=== PATIENT | female | born 2000 | race Caucasian/White ===

== ENCOUNTER 2023-09-11 13:25 | Emergency (ER) | payer OTHER, SELFPAY ==
[2023-09-11 13:30] VITALS: BP 136/83
[2023-09-11 13:44] VITALS: BMI 22.5
--- NOTE | 2023-09-11 14:04 | ED.GENMED ---
History of Present Illness
General
Chief Complaint: Breathing Problem
Source: patient
Exam Limitations: none
Time Seen by Provider: 09/11/23 13:45
Nursing documentation reviewed up to this point in time: agreed with
Travel History
Have you had any contact with someone who has COVID-19?: No
Do you have any symptoms of coronavirus? Fever > 100 degrees, chills, cough, shortness of breath, sore throat, loss of taste or smell, muscle aches, or headache?: Yes
Symptoms:: see triage note
History of Present Illness
History of Present Illness:
23-year-old female presents to the ER for evaluation. Patient is a college student and on Wednesday started with cough. Today however she had a lot of trouble breathing and felt short of breath with coughing. She does have some bodyaches. She did
have a low-grade fever. Parents at bedside brought patient home from [facility] this morning.
Review of Systems
Review of Systems
Allergies reviewed?: Yes
Other source history: family
All Other Systems: ROS reviewed and negative except as documented in HPI and ROS
Constitutional: Reports fever, fatigue and chills
EENT: Reports no symptoms; Denies sore throat or runny nose
Respiratory: Reports cough and trouble breathing
Cardiac: Reports no symptoms
ABD/GI: Reports no symptoms
: Reports no symptoms
Musculoskeletal: Reports no symptoms
Skin: Reports no symptoms
Neurological: Reports no symptoms
Hematologic/Lymphatic: Reports no symptoms
Psychiatric: Reports no symptoms
Phy Exam
General Physical Exam
General Presentation: no apparent distress
General age: appears stated age
General Skin: warm and dry
General Habitus: normal
General Mental: alert
General Hydration: appears well hydrated
ENT Exam
ENT Exam: pharynx normal and neck supple
Cardiovascular Exam
Cardiovascular Exam: regular rate/rhythm, no murmur and normal peripheral pulses
Pulmonary Exam
Pulmonary Exam: no respiratory distress and other ( very slight insp wheeze b/l )
Neurological Exam
Neurological Exam: alert and oriented x3
Mercer Coma Scale
Eye Opening: Spontaneous
Verbal Response: Oriented
Motor Response: Obeys Commands
GCS Total Score: 15
Musculoskeletal Exam
Musculoskeletal Exam: full ROM
Skin Exam
Skin Exam: normal color
Psychiatric Exam
Psychiatric Exam: normal mood/affect
Course
Orders/Labs/Results
Orders:
Orders
09/11/23 13:38
COVID-19 Antigen Urgent
Source: Nasal Swab
Influenza A+B Rapid Molecular Urgent
CARYL Source: Nasal Swab
Specimen Description:
09/11/23 14:48
Dexamethasone Pf [Decadron] 10 mg PO NOW STA
09/11/23 14:49
Albuterol Nebs [Ventolin Nebules] 2.5 mg INH R NOW STA
09/11/23 14:50
Albuterol Nebs [Ventolin Nebules] 2.5 mg .ROUTE .STK-MED ONE
Dexamethasone Pf [Decadron] 10 mg .ROUTE .STK-MED ONE
09/11/23 14:04
09/11/23 14:04
Vital Signs
Initial and Last Documented VS:
Initial Vital Signs
Temp Pulse Resp BP Pulse Ox
98.7 F 102 18 136/83 100
09/11/23 13:30 09/11/23 13:30 09/11/23 13:30 09/11/23 13:30 09/11/23 13:30
Last Documented Vital Signs
Temp Pulse Resp BP Pulse Ox
98.7 F 102 18 136/83 100
09/11/23 13:30 09/11/23 13:30 09/11/23 13:30 09/11/23 13:30 09/11/23 13:30
MDM/Problems Addressed
Differential Diagnosis Includes:
Not limited to viral syndrome, bronchitis, pneumonia, influenza COVID, possible mono
MDM/Problems Addressed:
Patient is a 23-year-old female who presents with complaints of cough and fatigue body aches intermittent fever since Wednesday. She is a college student parents brought her back from college today. Patient complains of feeling chest tightness and
shortness of breath with coughing. Patient presents to the ER awake alert no acute distress she is not hypoxic afebrile here very slight minimal wheeze. Patient with no meningismus negative COVID however positive for influenza A. Patient was
given 1 nebulized albuterol treatment here with 1 dose of oral Decadron for slight minimal wheeze tolerated that well. Will DC with albuterol inhaler and Tessalon Perles. Discussed supportive care including stay well-hydrated Tylenol Motrin for
fever chills body aches and to return if any worsening of symptoms. Patient nontoxic stable for discharge home all instructions reviewed with patient and parents at bedside
*Pulse Oximetry
Patient hypoxic: no
*Critical Care Note
Total Time (30-74mins, 75-104mins- exclusive of procedures): Not Applicable
ED Attending Note
-
Portions of this chart may have been created with voice recognition software.� Occasional wrong word or��sound alike� substitutions may have occurred due to the inherent limitations of voice recognition software.
Discharge Plan
Departure
Patient Disposition: Home (Routine Discharge)
Date of Disposition: 09/11/23
Time of Disposition: 15:04
Patient with high blood pressure during this ER visit?: Yes
Condition: Fair
Covid-19: Negative COVID-19
Discharge Problem:
Influenza A
Instructions: Flu, Adult (DC)
Prescriptions:
New
albuterol sulfate 90 mcg/actuation HFA aerosol inhaler
1 inh inhalation Q4H PRN (Reason: shortness of breath or wheezing) Qty: 6.7 0RF
benzonatate 100 mg capsule
200 mg PO TID PRN (Reason: Cough) Qty: 14 0RF
Referrals:
Martín Gutiérrez, DO [Family Provider] -
Stand Alone Forms: Back to School
Activity Restrictions/Additional Instructions:
Use inhaler 2 puffs every 4-6 hours as needed for cough.
You may take cough medicine as directed every 8 hours as needed. Be sure to get plenty rest stay well-hydrated. You may alternate between ibuprofen and Tylenol for fever chills and bodyaches. Follow-up family doctor next several days as needed.
return if any worsening of symptoms.
Interventions
Interventions:
*Risk Screen - Suicide Last Done: 09/11/23 13:43
*General Assessment Last Done: 09/11/23 13:30
*Neglect/Abuse Screening Last Done: 09/11/23 13:43
ED- Fall Risk Assessment Last Done: 09/11/23 13:43
*ED COVID-19 Vaccine History Last Done: 09/11/23 13:30
*Nursing Disposition Last Done: 09/11/23 15:18
ED- Cardiac Assessment Last Done: 09/11/23 13:44
ED- Pulmonary Assessment Last Done: 09/11/23 13:44
Discharge Date and Time
Discharge Date/Time: 09/11/23 15:21
[2023-09-11 14:11] LABS: COVID-19 Antigen Negative (Negative)
[2023-09-11] MEDS: VENTOLIN NEBULES 2.5 MG INH (14:53)
[2023-09-11] MEDS: DECADRON 10 MG PO (14:53)
== END 2023-09-11 15:21 | disposition home or self-care (01) ==
LOC: EMR 13:25
PROVIDERS: EMERGENCY PHYSICIAN Student in an Organized Health Care Education/Training Program; FAMILY PHYSICIAN Family Medicine
DX: J10.1 Influenza due to other identified influenza virus with other respiratory manifestations (principal); Z11.52 Encounter for screening for COVID-19; R03.0 Elevated blood-pressure reading, without diagnosis of hypertension; Z88.1 Allergy status to other antibiotic agents; Z88.0 Allergy status to penicillin
CPT/HCPCS: 99283; 94640; 87502; 87811

== ENCOUNTER → 2023-11-19 12:53 | Outpatient (REF) | payer OTHER, SELFPAY | LOC: HWRAD 12:53 | PROVIDERS: ATTENDING PHYSICIAN Family Medicine | DX: R59.0 Localized enlarged lymph nodes (principal) | CPT/HCPCS: 76536 ==

== ENCOUNTER → 2023-12-07 16:12 | Outpatient (REF) | payer OTHER, SELFPAY | LOC: RAD 16:12 | PROVIDERS: ATTENDING PHYSICIAN Family Medicine | DX: R06.02 Shortness of breath (principal) | CPT/HCPCS: 71046 ==

== ENCOUNTER → 2024-01-31 11:30 | Outpatient (REF) | payer OTHER, SELFPAY | LOC: RAD 11:30 | PROVIDERS: ATTENDING PHYSICIAN Otolaryngology; FAMILY PHYSICIAN Family Medicine | DX: R59.0 Localized enlarged lymph nodes (principal) | CPT/HCPCS: 70492; Q9967 ==